=== PATIENT | male | born 1980 | race American Indian/Alaskan Native ===

== ENCOUNTER 2018-01-14 00:26 | Emergency (ER) | payer OTHER ==
[2018-01-14 02:06] LABS: Basophils % (Auto) 0.3 % (0.0-1.8); Eosinophils # (Auto) 0.3 K/mm3 (0.0-0.4); Hematocrit 47.3 % (35.5-45.6); Hemoglobin 16.2 gm/dl (11.8-15.2); Lymphocytes # (Auto) 1.4 K/mm3 (1.2-5.4); Lymphocytes % (Auto) 20.6 % (13.4-35.0); Mean Corpuscular HGB Conc 34 % (32-34); Mean Corpuscular Hemoglobin 31 pg (28-32); Mean Corpuscular Volume 90 fl (84-94); Monocytes # (Auto) 0.7 K/mm3 (0.0-0.8); Monocytes % (Auto) 10.3 % (0.0-7.3); Platelet Count 168 K/mm3 (140-440); Red Blood Count 5.26 M/mm3 (3.65-5.03); Red Cell Distribution Width 12.2 % (13.2-15.2)
[2018-01-14 02:19] LABS: BUN/Creatinine Ratio 7; Blood Urea Nitrogen 8 mg/dL (9-20); Calcium 9.8 mg/dL (8.4-10.2); Hemolysis Index 11
[2018-01-14 05:42] VITALS: BP 160/102
--- NOTE | 2018-01-14 06:13 | Emergency Department Report ---
ED General Adult HPI - General Chief complaint: Dizziness Stated complaint: DIZZINESS,HEADACHE,NUMB FOOT Time Seen by Provider: 01/14/18 06:12 Source: patient Mode of arrival: Ambulatory Limitations: No Limitations - History of Present Illness Initial comments: This is a 37-year-old male who states he's had intermittent numbness of his foot and sometimes of his left face for the last 1 month. He states he was seen at [facility] 2 weeks ago for the same symptoms. Yesterday he had a "slight headache" which has resolved. He decided To the emergency room to be evaluated. He does not complain of any persistent symptoms. His face is not numb. His foot is not numb. He states he felt slightly dizzy at work. He is not taking any current medications. He denies a history of diabetes. -: month(s) Location: face, left, lower extremity Radiation: non-radiation Severity scale (0 -10): 0 Quality: other (tingling) Consistency: intermittent, now resolved Improves with: none Worsens with: none Associated Symptoms: denies other symptoms, headaches (as above) Treatments Prior to Arrival: none - Related Data Previous Rx's Medication Instructions Recorded Last Taken Type Amlodipine Besylate [Norvasc] 2.5 mg PO QDAY #30 tablet 01/14/18 Unknown Rx Allergies Allergy/AdvReac Type Severity Reaction Status Date / Time No Known Allergies Allergy Unverified 01/14/18 01:19 ED Review of Systems ROS: Stated complaint: DIZZINESS,HEADACHE,NUMB FOOT Other details as noted in HPI Constitutional: denies: chills, fever Eyes: denies: eye pain, eye discharge, vision change ENT: denies: ear pain, throat pain Respiratory: denies: cough, shortness of breath, wheezing Cardiovascular: denies: chest pain, palpitations Endocrine: no symptoms reported Gastrointestinal: denies: abdominal pain, nausea, diarrhea Genitourinary: denies: urgency, dysuria Musculoskeletal: denies: back pain, joint swelling, arthralgia Skin: denies: rash, lesions Neurological: as per HPI, headache, paresthesias. denies: weakness, numbness, confusion, abnormal gait, vertigo Psychiatric: denies: anxiety, depression Hematological/Lymphatic: denies: easy bleeding, easy bruising ED Past Medical Hx - Past Medical History Previous Medical History?: No - Surgical History Past Surgical History?: No - Social History Smoking Status: Current Every Day Smoker Substance Use Type: None - Medications Home Medications: Home Medications Medication Instructions Recorded Confirmed Last Taken Type Amlodipine Besylate [Norvasc] 2.5 mg PO QDAY #30 tablet 01/14/18 Unknown Rx ED Physical Exam - General Limitations: No Limitations General appearance: alert, in no apparent distress - Head Head exam: Present: atraumatic, normocephalic - Eye Eye exam: Present: normal appearance, PERRL, EOMI. Absent: scleral icterus - ENT ENT exam: Present: mucous membranes moist - Neck Neck exam: Present: normal inspection. Absent: tenderness, meningismus - Respiratory Respiratory exam: Present: normal lung sounds bilaterally. Absent: respiratory distress - Cardiovascular Cardiovascular Exam: Present: regular rate, normal rhythm. Absent: systolic murmur, diastolic murmur, rubs, gallop - GI/Abdominal GI/Abdominal exam: Present: soft, normal bowel sounds. Absent: distended, tenderness, guarding, rebound, rigid - Rectal Rectal exam: Present: deferred - Extremities Exam Extremities exam: Present: normal inspection - Back Exam Back exam: Present: normal inspection. Absent: CVA tenderness (R), CVA tenderness (L), muscle spasm, paraspinal tenderness, vertebral tenderness - Neurological Exam Neurological exam: Present: alert, oriented X3, CN II-XII intact, normal gait, other (cerebellar testing was normal). Absent: motor sensory deficit - Psychiatric Psychiatric exam: Present: normal affect, normal mood - Skin Skin exam: Present: warm, dry, intact, normal color. Absent: rash ED Course Vital Signs 01/14/18 01/14/18 01/14/18 01:23 04:27 05:41 Temperature 97.8 F 97.7 F Pulse Rate 71 57 L 74 Respiratory Rate Blood Pressure 149/101 156/98 Blood Pressure 160/102 [Right] O2 Sat by Pulse 98 98 98 Oximetry - Reevaluation(s) Reevaluation #1: Patient was found resting comfortably and totally asymptomatic. He has no complaints at the time my encounter. 01/14/18 07:07 ED Medical Decision Making - Lab Data Result diagrams: 01/14/18 01:41 01/14/18 01:41 Laboratory Results - last 24 hr 01/14/18 01/14/18 01:41 01:41 WBC 6.7 RBC 5.26 H Hgb 16.2 H Hct 47.3 H MCV 90 MCH 31 MCHC 34 RDW 12.2 L Plt Count 168 Lymph % (Auto) 20.6 [place] % (Auto) 10.3 H Eos % (Auto) 5.0 H Baso % (Auto) 0.3 Lymph # 1.4 [place] # 0.7 Eos # 0.3 Baso # 0.0 Seg Neutrophils % 63.8 Seg Neutrophils # 4.3 Sodium 139 Potassium 4.4 Chloride 95.7 L Carbon Dioxide 31 H Anion Gap 17 BUN 8 L Creatinine 1.2 Estimated GFR > 60 BUN/Creatinine Ratio 7 Glucose 86 Calcium 9.8 - EKG Data EKG shows normal: sinus rhythm, axis (leftward), intervals, QRS complexes, ST-T waves Rate: normal - EKG Data Interpretation: no acute changes - Medical Decision Making Patient is found to have 3 elevated blood pressure readings. He be placed on Norvasc. He will be instructed to follow-up with a primary care physician. I do not think the hypertension the paresthesias are related. Critical care attestation.: If time is entered above; I have spent that time in minutes in the direct care of this critically ill patient, excluding procedure time. ED Disposition Clinical Impression: Essential hypertension, Paresthesia Disposition: -01 TO HOME OR SELFCARE Is pt being admited?: No Does the pt Need Aspirin: No Condition: Stable Instructions: Hypertension (ED), Paresthesia (ED) Additional Instructions: Follow-up with her primary care provider. Return any acute change or worsening symptoms. It appears to do have high blood pressure. I have gone U on some medicine for this. Prescriptions: Amlodipine Besylate [Norvasc] 2.5 mg PO QDAY #30 tablet Referrals: PRIMARY CARE, [Primary Care Provider] - 2-3 Days Time of Disposition: 07:10
--- NOTE | 2018-01-14 06:42 | Cat Scan Report ---
FINAL REPORT EXAM: CT HEAD/BRAIN WO CON HISTORY: headache, numb l foot TECHNIQUE: Routine axial imaging was obtained of the brain without IV contrast. FINDINGS: The ventricular system is appropriate in size and is symmetric. There is no evidence of acute stroke or hemorrhage. The visualized sinuses are clear. The mastoid air cells are well pneumatized. The calvarium appears intact. IMPRESSION: No acute intracranial process.
[2018-01-14 07:23] LABS: Bilirubin,Urine NEG (Negative); Blood,Urine SM (Negative); Color,Urine Straw (Yellow); Protein,Urine <15 mg/dL mg/dL (Negative); Urobilinogen,Urine < 2.0 mg/dL (<2.0); WBC,Urine < 1.0 /HPF (0.0-6.0)
== END 2018-01-14 07:34 | disposition home or self-care (01) ==
LOC: ED 00:26
DX: I10 Essential (primary) hypertension (principal); R20.2 Paresthesia of skin; F17.200 Nicotine dependence, unspecified, uncomplicated
CPT/HCPCS: 36415; 70450; 80048; 81001; 85025; 93005; 93010; 99284

== ENCOUNTER 2018-01-18 23:05 | Emergency (ER) | payer OTHER ==
[2018-01-18] MEDS ORDERED: TYLENOL PO ONE (23:30)
--- NOTE | 2018-01-18 23:34 | Emergency Department Report ---
HPI - General Chief Complaint: Anxiety Time Seen by Provider: 01/18/18 23:12 - HPI HPI: 37-year-old male presents to the emergency department via EMS from home with the complaint of some left-sided chest pain and a headache that started just prior to presentation while he was having an argument with his daughter. The chest pain resolved upon presentation. The headache is a mild intermittent left-sided throbbing headache that is 3 out of 10 in intensity at its worst. He denies any vision change, slurred speech, back pain, shortness of breath, fever, nausea, vomiting or any neurological deficits. He has a past medical history of hypertension for which he takes 2.5 mg of amlodipine daily. He is a tobacco smoker but denies any illicit drug use or heavy alcohol abuse. No recent travel, sick contacts at home, recent surgeries or immobility. He did not take anything for his symptoms prior presentation. He does not have a primary care physician. ED Past Medical Hx - Past Medical History Hx Hypertension: Yes - Surgical History Past Surgical History?: No - Social History Smoking Status: Current Every Day Smoker Substance Use Type: None - Medications Home Medications: Home Medications Medication Instructions Recorded Confirmed Last Taken Type Amlodipine Besylate [Norvasc] 2.5 mg PO QDAY #30 tablet 01/14/18 Unknown Rx ED Review of Systems ROS: Stated complaint: LATHAM/CP Other details as noted in HPI Comment: All other systems reviewed and negative Constitutional: denies: chills, fever Eyes: denies: eye pain, eye discharge, vision change ENT: denies: ear pain, throat pain Respiratory: denies: cough, shortness of breath, wheezing Cardiovascular: chest pain (resolved). denies: edema Gastrointestinal: denies: abdominal pain, nausea, diarrhea Genitourinary: denies: urgency, dysuria Musculoskeletal: denies: back pain, joint swelling, arthralgia Skin: denies: rash, lesions Neurological: headache. denies: weakness, numbness Physical Exam - Physical Exam Vital Signs: Vital Signs 01/18/18 01/18/18 23:12 23:15 Temperature 98.8 F 98.7 F Pulse Rate 80 88 Respiratory 16 Rate Blood Pressure 159/91 Blood Pressure 159/90 [Left] O2 Sat by Pulse 100 Oximetry Physical Exam: GENERAL: The patient is well-developed well-nourished. HENT: Normocephalic. Atraumatic. Patient has moist mucous membranes. EYES: Extraocular motions are intact. Pupils equal reactive to light bilaterally. NECK: Supple. Trachea is midline. CHEST/LUNGS: Clear to auscultation. There is no respiratory distress noted. HEART/CARDIOVASCULAR: Regular. There is no tachycardia. There is no murmur. ABDOMEN: Abdomen is soft, nontender. Patient has normal bowel sounds. There is no abdominal distention. SKIN: Skin is warm and dry. NEURO: The patient is awake, alert, and oriented. The patient is cooperative. The patient has no focal neurologic deficits. The patient has normal speech. MUSCULOSKELETAL: There is no tenderness or deformity. There is no limitation range of motion. There is no evidence of acute injury. ED Course Vital Signs 01/18/18 01/18/18 23:12 23:15 Temperature 98.8 F 98.7 F Pulse Rate 80 88 Respiratory 16 Rate Blood Pressure 159/91 Blood Pressure 159/90 [Left] O2 Sat by Pulse 100 Oximetry ED Medical Decision Making - Lab Data Result diagrams: 01/18/18 23:35 01/18/18 23:35 - EKG Data -: EKG Interpreted by Me EKG shows normal: sinus rhythm, axis, intervals, QRS complexes, ST-T waves Rate: normal - EKG Data When compared to previous EKG there are: previous EKG unavailable Interpretation: normal EKG - Radiology Data Radiology results: image reviewed interpreted by me: Chest x-ray does not show any acute process. There are no pleural effusions, obvious pneumonia and there is no pneumothorax. - Medical Decision Making The patient presented with complaint of some mild chest pain and headache after having an argument with his daughter. The symptoms seem to come and go but every time the patient is rechecked he appears to be sleeping and resting comfortably. EKG did not show any signs of ST elevation IA, ischemia or dysrhythmia. Chest x-ray does not show any acute process. He is low on the Heart score criteria and has a low SAMANTHA score. Negative troponins 2. Vital signs stable throughout his ED course. He was given some Tylenol for his symptoms with resolution at that time. He is given a referral for primary care and cardiology. He will return to the ER with any worsening of his symptoms or any acute distress. Critical Care Time: No Critical care attestation.: If time is entered above; I have spent that time in minutes in the direct care of this critically ill patient, excluding procedure time. ED Disposition Clinical Impression: Anxiety, Intermittent chest pain Headache Qualifiers: Headache type: unspecified Headache chronicity pattern: unspecified pattern Intractability: not intractable Qualified Code(s): R51 - Headache Hypertension Qualifiers: Hypertension type: essential hypertension Qualified Code(s): I10 - Essential ( primary) hypertension Disposition: TO HOME OR SELFCARE Is pt being admited?: No Condition: Stable Instructions: Chest Pain (ED), Hypertension (ED), Anxiety (ED) Additional Instructions: Please try and quit smoking. Continue with your blood pressure medications. Try and stay away from foods that are high in salt and caffeinated products to help with your blood pressure. Keep a blood pressure log. I have given you a referral for a local partridge farmer, Dr. Ford, to follow up regarding your previous chest pains. Return to the emergency department with any return or worsening of your symptoms, or with any acute distress. Referrals: [facility] [Outside] - 3-5 Days BHUMIKA FORD MD [Staff Physician] - 3-5 Days PRIMARY CAREMD [Primary Care Provider] - 3-5 Days Heart Score - HEART Score History: Slightly suspicious EKG: Normal Age: < 45 Risk factors: 1-2 risk factors Troponin: < normal limit HEART Score: 1 SAMANTHA score - Samantha Score Age > 65: (0) No Aspirin use within the Past 7 Days: (0) No 3 or more CAD Risk Factors: (0) No 2 or more Angina events in past 24 hrs: (1) Yes (If pain is angina) Known CAD with more than 50% Stenosis: (0) No Elevated Cardiac Markers: (0) No ST Deviation Greater than 0.5mm: (0) No SAMANTHA Score: 1
[2018-01-18 23:50] LABS: Mean Corpuscular HGB Conc 36 % (32-34); Mean Corpuscular Hemoglobin 32 pg (28-32); Mean Corpuscular Volume 89 fl (84-94); Platelet Count 163 K/mm3 (140-440); Red Blood Count 5.05 M/mm3 (3.65-5.03)
[2018-01-18 23:54] LABS: Hematocrit 44.7 % (35.5-45.6); Hemoglobin 16.1 gm/dl (11.8-15.2)
[2018-01-19 00:02] LABS: BUN/Creatinine Ratio 10; Blood Urea Nitrogen 11 mg/dL (9-20); Calcium 9.8 mg/dL (8.4-10.2); Hemolysis Index 10
--- NOTE | 2018-01-19 00:52 | XRay Report ---
FINAL REPORT EXAM: XR CHEST ROUTINE 2V HISTORY: Chest pain TECHNIQUE: PA and lateral views of the chest were obtained. PRIORS: None. FINDINGS: Ill-defined opacities are noted in the right midlung which mildly obscures the hilum. There is no pleural effusion. The left lung is clear. The cardiac silhouette is not enlarged. There is mild broad central peribronchial thickening. The mid/lower thoracic spine there is suggested mild sharply delineated endplate depressions. IMPRESSION: Ill-defined right midlung opacities suggestive of infiltrate. Remaining lungs are clear and there is no pleural effusion. Incidental well demarcated suggested endplate compressions in lower thoracic spine. Findings may be projectional, however lysosomal storage disease or sickle cell anemia can result in a similar appearance. Correlation with clinical history requested.
[2018-01-19 01:01] LABS: Basophils % (Manual) 0 % (0.0-1.8); Platelet Estimate Consistent w Auto; Target Cells Rare; Total Cells Counted 100
[2018-01-19 02:51] VITALS: BP 100/77
== END 2018-01-19 03:19 | disposition home or self-care (01) ==
LOC: ED 23:05
DX: F41.9 Anxiety disorder, unspecified (principal); R51 Headache; I10 Essential (primary) hypertension; F17.200 Nicotine dependence, unspecified, uncomplicated
CPT/HCPCS: 36415; 71046; 80048; 84484; 85007; 85025; 93005; 93010; 99284

== ENCOUNTER 2018-05-10 22:30 | Emergency (ER) | payer OTHER ==
[2018-05-10 23:00] VITALS: BP 144/90
--- NOTE | 2018-05-11 02:58 | Emergency Department Report ---
ED General Adult HPI - General Chief complaint: Medical Clearance Stated complaint: FEELING ILL Time Seen by Provider: 05/11/18 02:21 Source: patient Mode of arrival: Ambulatory Limitations: No Limitations - History of Present Illness Initial comments: 38-year-old -[place] male to emergency Department complaining of having a several month history of having tingling sensations in hot flashes to his body since starting a new blood pressure medication. 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 However, after he restarted taking the previous medications symptoms begin to reemerge. He reports no presyncope, no palpitations, no hemoptysis, no hematemesis. No headache, no nausea, no vomiting, no angioedema, no wheezing, no rashes, no insomnia Consistency: constant Improves with: none Worsens with: none Associated Symptoms: denies: confusion, chest pain, diaphoresis, loss of appetite, malaise, nausea/vomiting, syncope, weakness - Related Data Previous Rx's Medication Instructions Recorded Last Taken Type Amlodipine Besylate [Norvasc] 2.5 mg PO QDAY #30 tablet 01/14/18 Unknown Rx Allergies Allergy/AdvReac Type Severity Reaction Status Date / Time aspirin Allergy Swelling Verified 03/01/18 06:56 ED Review of Systems ROS: Stated complaint: FEELING ILL Other details as noted in HPI Constitutional: denies: chills, fever Eyes: denies: eye pain, eye discharge, vision change ENT: denies: ear pain, throat pain Respiratory: denies: cough, shortness of breath, wheezing Cardiovascular: denies: chest pain, palpitations Endocrine: no symptoms reported Gastrointestinal: denies: abdominal pain, nausea, diarrhea Genitourinary: denies: urgency, dysuria Musculoskeletal: denies: back pain, joint swelling, arthralgia Skin: denies: rash, lesions Neurological: denies: headache, weakness, paresthesias Psychiatric: denies: anxiety, depression Hematological/Lymphatic: denies: easy bleeding, easy bruising ED Past Medical Hx - Past Medical History Hx Hypertension: Yes - Social History Smoking Status: Current Every Day Smoker Substance Use Type: None - Medications Home Medications: Home Medications Medication Instructions Recorded Confirmed Last Taken Type Amlodipine Besylate [Norvasc] 2.5 mg PO QDAY #30 tablet 01/14/18 Unknown Rx ED Physical Exam - General Limitations: No Limitations General appearance: alert, in no apparent distress - Head Head exam: Present: atraumatic, normocephalic - Eye Eye exam: Present: normal appearance, PERRL, EOMI Pupils: Present: normal accommodation - ENT ENT exam: Present: mucous membranes moist. Absent: normal orophraynx - Neck Neck exam: Present: normal inspection - Respiratory Respiratory exam: Present: normal lung sounds bilaterally. Absent: respiratory distress, rales, rhonchi - Cardiovascular Cardiovascular Exam: Present: regular rate, normal rhythm. Absent: bradycardia, tachycardia, systolic murmur, diastolic murmur, rubs, gallop - GI/Abdominal GI/Abdominal exam: Present: soft, normal bowel sounds - Rectal Rectal exam: Present: deferred - Extremities Exam Extremities exam: Present: normal inspection - Back Exam Back exam: Present: normal inspection, full ROM. Absent: muscle spasm, paraspinal tenderness, vertebral tenderness - Neurological Exam Neurological exam: Present: alert, oriented X3, CN II-XII intact, normal gait - Psychiatric Psychiatric exam: Present: normal affect, normal mood - Skin Skin exam: Present: warm, dry, intact, normal color. Absent: rash ED Course Vital Signs 05/10/18 22:46 Temperature 98.1 F Pulse Rate 77 Respiratory 18 Rate Blood Pressure 144/90 O2 Sat by Pulse 100 Oximetry ED Medical Decision Making - Medical Decision Making Blood sugar 77. Discussed with patient need follow with his chairman of the board and primary care provider for any adjustments to his medication as his vital signs are stable was no signs of any allergic reaction or or anaphylaxis. Critical care attestation.: If time is entered above; I have spent that time in minutes in the direct care of this critically ill patient, excluding procedure time. ED Disposition Clinical Impression: Medication reaction Disposition: DC-01 TO HOME OR SELFCARE Is pt being admited?: No Does the pt Need Aspirin: No Condition: Stable Instructions: Adverse Drug Reaction (ED) Referrals: PRIMARY CARE, [Primary Care Provider] - 3-5 Days
== END 2018-05-11 03:36 | disposition home or self-care (01) ==
LOC: ED 22:30
DX: R20.2 Paresthesia of skin (principal); I10 Essential (primary) hypertension; F17.200 Nicotine dependence, unspecified, uncomplicated; Z79.82 Long term (current) use of aspirin
CPT/HCPCS: 82962; 99283